=== PATIENT | male | born 1965 | race American Indian/Alaskan Native ===

== ENCOUNTER 2016-06-20 20:15 | Emergency (ER) | payer OTHER ==
[2016-06-21 01:35] VITALS: BP 147/100
--- NOTE | 2016-06-21 01:35 | Emergency Department Report ---
HPI - General Chief Complaint: Extremity Injury, Upper Time Seen by Provider: 06/21/16 01:20 - HPI HPI: 50-year-old male presents to the ED complaining of right hand pain 2 weeks. Patient states he fell about 2 weeks ago and so sore. Patient states since then he is increased pain in that right hand. Patient states he is able to make a fist with his hand. Patient describes been as throbbing intermittent and 4 out of 10 in nature. Patient denies any other medical historyonly that he takes HIV medications. Patient denies fever assess chills/loss of sensation on hand, ED Past Medical Hx - Past Medical History Hx Hypertension: Yes Hx HIV: Yes (AIDS) Additional medical history: HEART MURMUR - Surgical History Additional Surgical History: HAND,ANKLE surgery - Social History Smoking Status: Current Every Day Smoker Substance Use Type: Alcohol - Medications Home Medications: Home Medications Medication Instructions Recorded Confirmed Last Taken Type Abacavir/Dolutegravir/Lamivudi 1 each PO DAILY #30 tablet 02/21/16 Unknown Rx [Triumeq Tablet] Dicyclomine [Bentyl] 10 mg PO QID PRN #20 capsule 02/21/16 Unknown Rx Hydrocortisone [Anucort-HC SUPPOS] 25 mg RC BID #14 supp.rect 02/21/16 Unknown Rx Ondansetron [Zofran Odt] 4 mg PO QID PRN #20 tab.rapdis 02/21/16 Unknown Rx Cyclobenzaprine [Flexeril] 10 mg PO QHS PRN #16 tablet 06/21/16 Unknown Rx Ibuprofen [Motrin] 800 mg PO Q8HR PRN #30 tablet 06/21/16 Unknown Rx ED Review of Systems ROS: Stated complaint: RIGHT ARM PAIN Other details as noted in HPI Constitutional: denies: chills, fever Eyes: denies: eye pain, eye discharge, vision change ENT: denies: ear pain, throat pain Respiratory: denies: cough, shortness of breath, wheezing Cardiovascular: denies: chest pain, palpitations Endocrine: no symptoms reported Gastrointestinal: denies: abdominal pain, nausea, diarrhea Genitourinary: denies: urgency, dysuria Musculoskeletal: denies: back pain, joint swelling, arthralgia Skin: denies: rash, lesions Neurological: denies: headache, weakness, paresthesias Psychiatric: denies: anxiety, depression Hematological/Lymphatic: denies: easy bleeding, easy bruising Physical Exam - Physical Exam Vital Signs: Vital Signs 06/20/16 06/20/16 06/20/16 21:28 21:37 22:56 Temperature 98.8 F 98.8 F 98.6 F Pulse Rate 88 88 88 Respiratory 18 18 Rate Blood Pressure 163/101 Blood Pressure 153/98 [Left] Blood Pressure 163/101 [Right] O2 Sat by Pulse 100 100 97 Oximetry Physical Exam: GENERAL: Alert and oriented x3, no apparent distress, Normal Gait, atraumatic. HEAD: Head is normocephalic and a-traumatic. EYES: Extra ocular muscles are intact. Pupils are equal, round, and reactive to light and accommodation. EARS: symetrical, atraumatic, gross auditory nml bilaterally. NOSE: Nose symetrical, Nontender,Nares appeared normal. MOUTH:Mouth is well hydrated and without lesions.. Patent airways. NECK: Supple. Non edematous, No carotid bruits. No lymphadenopathy or thyromegaly. LUNGS: Symetrical with respiration, No wheezing, no rales or crackles, CTAB. HEART: S1, S2 present, regular rate and rhythm without murmur, no rubs, no gallops. ABDOMEN: No organomegaly was noted,Positive bowel sounds, soft, and non- distended. . Nontender to palpation on all Quadrants, NO CVA tenderness. EXTREMITIES/MUSCULOSKELETAL: No cyanosis, clubbing, rash, lesions or edema. Full ROM bilaterally. UE/LE Pulses 2+ bilaterally. LE and UE 5+ strength bilaterally. Tenderness to palpation over the forearm and fifth metacarpal bone. Full range of motion in fingers and hand. No snuffbox tenderness NEUROLOGIC: No focal Deficit, Cranial nerves II through XII are grossly intact. No loss of sensation, PSYCHIATRIC: Mood is congruent with affect, denies suicidal or homicidal ideations. SKIN: Warm and dry, No lesions, No ulceration or induration present. ED Course Vital Signs 06/20/16 06/20/16 06/20/16 21:28 21:37 22:56 Temperature 98.8 F 98.8 F 98.6 F Pulse Rate 88 88 88 Respiratory 18 18 Rate Blood Pressure 163/101 Blood Pressure 153/98 [Left] Blood Pressure 163/101 [Right] O2 Sat by Pulse 100 100 97 Oximetry ED Medical Decision Making - Radiology Data Radiology results: report reviewed, image reviewed FINAL REPORT PROCEDURE: XR HAND 2V RT TECHNIQUE: Right hand radiographs, AP, lateral, and oblique views. CPT 76835 HISTORY: Fall. Lateral hand pain. COMPARISON: No prior studies are available for comparison. FINDINGS: Fracture (s) and/or Dislocation(s): There is hardware transfixing an old healed fracture of the 1st metacarpal bone.. Alignment: Normal . Joint space(s): Normal . Soft tissues: There is mild soft tissue swelling.. Bone mineralization: Normal . Foreign bodies: None . IMPRESSION: There is no acute bony or soft tissue abnormality.. Transcribed By: CO Dictated By: KOFFI KEITH MD Electronically Authenticated By: KOFFI KEITH MD Signed Date/Time: 06/21/16219 - Medical Decision Making 50-year-old male presents with hand pain secondary to fall. ED course: Hand x-ray ordered. X-ray shows-healed metacarpal fracture. An mild tissue swelling. See above Discussed findings with patient. Patient is alert and oriented 3 is in no sensory distress. Vital signs stable Discussed the patient to follow up with primary care physician. Discussed the patient on medication of Motrin and Fosamax relaxant. Discussed applying heat to right hand. Discussed with patient drowsiness effect of muscle relaxant not to drink while taking medication. Family states he understands and will follow instructions and follow-up Critical care attestation.: If time is entered above; I have spent that time in minutes in the direct care of this critically ill patient, excluding procedure time. ED Disposition Clinical Impression: Healed fracture Contusion of hand Qualifiers: Encounter type: initial encounter Laterality: right Qualified Code(s): S60.221A - Contusion of right hand, initial encounter Disposition: DISCHARGED TO HOME OR SELFCARE Is pt being admited?: No Does the pt Need Aspirin: No Condition: Stable Instructions: Hand Sprain (ED), Contusion in Adults (ED), Heat Pack Application (ED) Prescriptions: Cyclobenzaprine [Flexeril] 10 mg PO QHS PRN #16 tablet PRN Reason: Muscle Spasm Ibuprofen [Motrin] 800 mg PO Q8HR PRN #30 tablet PRN Reason: Pain Referrals: PRIMARY CARE, [Primary Care Provider] - 3-5 Days AYDEE DUKE MD [Referring] - 3-5 Days FABRIZIO OSWALD MD [Referring] - 3-5 Days [facility] [Outside] - 3-5 Days [facility] [Outside] - 3-5 Days Forms: Work/School Release Form(ED) Time of Disposition: 02:44
--- NOTE | 2016-06-21 02:24 | XRay Report ---
FINAL REPORT PROCEDURE: XR HAND 2V RT TECHNIQUE: Right hand radiographs, AP, lateral, and oblique views. CPT 25033 HISTORY: Fall. Lateral hand pain. COMPARISON: No prior studies are available for comparison. FINDINGS: Fracture (s) and/or Dislocation(s): There is hardware transfixing an old healed fracture of the 1st metacarpal bone.. Alignment: Normal . Joint space(s): Normal . Soft tissues: There is mild soft tissue swelling.. Bone mineralization: Normal . Foreign bodies: None . IMPRESSION: There is no acute bony or soft tissue abnormality..
== END 2016-06-21 03:28 | disposition home or self-care (01) ==
LOC: ED 20:15
DX: S60.221A Contusion of right hand, initial encounter (principal); I10 Essential (primary) hypertension; F17.200 Nicotine dependence, unspecified, uncomplicated; W19.XXXA Unspecified fall, initial encounter; Y93.89 Activity, other specified; Y99.9 Unspecified external cause status; Y92.89 Other specified places as the place of occurrence of the external cause

== ENCOUNTER 2016-11-16 13:08 | Inpatient (IN) | payer OTHER ==
[2016-11-16 13:55] LABS: Anion Gap 23 mmol/L; Blood Urea Nitrogen 12 mg/dL (9-20); Carbon Dioxide 19 mmol/L (22-30); Chloride 104.8 mmol/L (98-107); Glucose 103 mg/dL (75-100); Potassium 3.7 mmol/L (3.6-5.0); Sodium 143 mmol/L (137-145)
--- NOTE | 2016-11-16 14:07 | XRay Report ---
FINAL REPORT EXAM: XR CHEST 1V AP HISTORY: chest pain with congestion TECHNIQUE: Single frontal view of the chest PRIORS: None FINDINGS: Lungs are clear. Heart size is normal. Normal pulmonary vasculature. No effusion or pneumothorax. IMPRESSION: 1. No acute finding.
--- NOTE | 2016-11-16 14:12 | Emergency Department Report ---
ED Chest Pain HPI - General Chief Complaint: Chest Pain Stated Complaint: CHEST PAIN/BRYSON Time Seen by Provider: 11/16/16 13:53 Source: patient, EMS Mode of arrival: Stretcher Limitations: No Limitations - History of Present Illness Initial Comments: 51-year-old male here with complaint of mild chest pain and shortness of breath. Patient states that he has been feeling fatigue and worsening shortness of breath of a course last 2 days today he developed some mild chest discomfort and felt increasingly short of breath. He denies any fevers or chills no obvious cough. He has a history of HIV and he says his viral levels are undetectable. He's been under significant stress lately as he recently lost his partner of 21 years. States he is not eating very well. MD Complaint: chest pain Pain Location: substernal Pain Radiation: none Severity scale (0 -10): 7 Quality: tightness Consistency: now resolved Improves With: nitroglycerin re: dyspnea. denies: nausea, vomting, diaphoresis - Related Data Previous Rx's Medication Instructions Recorded Last Taken Type Abacavir/Dolutegravir/Lamivudi 1 each PO DAILY #30 tablet 02/21/16 Unknown Rx [Triumeq Tablet] Dicyclomine [Bentyl] 10 mg PO QID PRN #20 capsule 02/21/16 Unknown Rx Hydrocortisone [Anucort-HC SUPPOS] 25 mg RC BID #14 supp.rect 02/21/16 Unknown Rx Ondansetron [Zofran Odt] 4 mg PO QID PRN #20 tab.rapdis 02/21/16 Unknown Rx Cyclobenzaprine [Flexeril] 10 mg PO QHS PRN #16 tablet 06/21/16 Unknown Rx Ibuprofen [Motrin] 800 mg PO Q8HR PRN #30 tablet 06/21/16 Unknown Rx Allergies Allergy/AdvReac Type Severity Reaction Status Date / Time No Known Allergies Allergy Verified 08/10/14 04:14 Heart Score - HEART Score History: Moderately suspicious EKG: Non-specific Age: 45-65 Risk factors: 1-2 risk factors Troponin: < normal limit HEART Score: 4 - Critical Actions Critical Actions: 0-3 pts:0.9-1.7%risk of adverse cardiac event.Candidate for discharge ED Review of Systems ROS: Stated complaint: CHEST PAIN/BRYSON Other details as noted in HPI Comment: All other systems reviewed and negative Constitutional: malaise, weakness Eyes: denies: eye pain, eye discharge, vision change ENT: denies: ear pain, throat pain Respiratory: shortness of breath, SOB with exertion. denies: cough, wheezing Cardiovascular: chest pain, dyspnea on exertion. denies: palpitations Endocrine: no symptoms reported Gastrointestinal: other (anorexia). denies: abdominal pain, nausea, diarrhea Genitourinary: denies: urgency, dysuria Musculoskeletal: denies: back pain, joint swelling, arthralgia Skin: denies: rash, lesions Neurological: denies: headache, weakness, paresthesias Psychiatric: denies: anxiety, depression Hematological/Lymphatic: denies: easy bleeding, easy bruising ED Past Medical Hx - Past Medical History Previous Medical History?: Yes Hx Hypertension: Yes Hx HIV: Yes (AIDS) Additional medical history: HEART MURMUR - Surgical History Additional Surgical History: HAND,ANKLE surgery - Family History Family history: no significant - Social History Smoking Status: Current Every Day Smoker Substance Use Type: Alcohol - Medications Home Medications: Home Medications Medication Instructions Recorded Confirmed Last Taken Type Abacavir/Dolutegravir/Lamivudi 1 each PO DAILY #30 tablet 02/21/16 Unknown Rx [Triumeq Tablet] Dicyclomine [Bentyl] 10 mg PO QID PRN #20 capsule 02/21/16 Unknown Rx Hydrocortisone [Anucort-HC SUPPOS] 25 mg RC BID #14 supp.rect 02/21/16 Unknown Rx Ondansetron [Zofran Odt] 4 mg PO QID PRN #20 tab.rapdis 02/21/16 Unknown Rx Cyclobenzaprine [Flexeril] 10 mg PO QHS PRN #16 tablet 06/21/16 Unknown Rx Ibuprofen [Motrin] 800 mg PO Q8HR PRN #30 tablet 06/21/16 Unknown Rx ED Physical Exam - General Limitations: No Limitations General appearance: alert, in no apparent distress - Head Head exam: Present: atraumatic, normocephalic - Eye Eye exam: Present: normal appearance. Absent: scleral icterus, conjunctival injection - ENT ENT exam: Present: mucous membranes moist - Neck Neck exam: Present: normal inspection - Respiratory Respiratory exam: Present: normal lung sounds bilaterally. Absent: respiratory distress - Cardiovascular Cardiovascular Exam: Present: regular rate, normal rhythm. Absent: systolic murmur, diastolic murmur, rubs, gallop - GI/Abdominal GI/Abdominal exam: Present: soft, normal bowel sounds. Absent: distended, tenderness, guarding - Rectal Rectal exam: Present: deferred - Extremities Exam Extremities exam: Present: normal inspection - Back Exam Back exam: Present: normal inspection - Neurological Exam Neurological exam: Present: alert, oriented X3 - Psychiatric Psychiatric exam: Present: normal affect, normal mood - Skin Skin exam: Present: warm, dry, intact, normal color, rash (diffuse) ED Course Vital Signs 11/16/16 11/16/16 11/16/16 13:16 13:19 13:26 Temperature 98.3 F Pulse Rate 111 H 77 Respiratory 30 H 21 Rate Blood Pressure 124/73 O2 Sat by Pulse 99 100 Oximetry 11/16/16 11/16/16 13:30 13:50 Temperature Pulse Rate 81 Respiratory 11 L 18 Rate Blood Pressure 125/82 O2 Sat by Pulse 97 100 Oximetry ED Medical Decision Making - Lab Data Result diagrams: 11/16/16 13:32 11/16/16 13:32 - EKG Data -: EKG Interpreted by Nv - EKG Data 11/16/16 14:16 Sinus rate of 77 normal axis normal intervals he has T-wave inversions in I, II , aVL V5 and V6 This is not significantly changed when compared to his EKG from June 2016 in late 2016 - Medical Decision Making 51-year-old male with a history of HIV undetectable viral load here with complaint of 2 days of worsening shortness of breath and some chest tightness. His EKG is unchanged from his priors however he's not had a cardiac workup according to the patient. His heart score places him in moderate risk and he will likely be admitted for further cardiac evaluation. Critical care attestation.: If time is entered above; I have spent that time in minutes in the direct care of this critically ill patient, excluding procedure time. ED Disposition Clinical Impression: Chest pain Disposition: OP ADMIT IP TO THIS HOSP Is pt being admited?: Yes Condition: Stable Instructions: Chest Pain (ED)
[2016-11-16 14:18] LABS: Basophils % (Auto) 1.1 % (0.0-1.8); Eosinophils % (Auto) 1.5 % (0.0-4.3); Hematocrit 44.2 % (35.5-45.6); Hemoglobin 14.7 gm/dl (11.8-15.2); Mean Corpuscular HGB Conc 33 % (32-34); Mean Corpuscular Hemoglobin 33 pg (28-32); Mean Corpuscular Volume 98 fl (84-94); White Blood Count 4.8 K/mm3 (4.5-11.0)
[2016-11-16 14:28] LABS: Platelet Count 50 K/mm3 (140-440)
[2016-11-16] MEDS ORDERED: ZOFRAN ODT PO PRN (17:04)
[2016-11-16] MEDS ORDERED: FLEXERIL PO PRN (17:04)
[2016-11-16] MEDS ORDERED: BENTYL PO PRN (17:04)
--- NOTE | 2016-11-16 17:04 | History and Physical Report ---
History of Present Illness Date of examination: 11/16/16 Date of admission: 11/16/16 Chief complaint: Chest pain off and on for 2 days History of present illness: History of Present Illness 51-year-old male here with complaint of mild chest pain and shortness of breath. Patient states that he has been feeling fatigue and worsening shortness of breath of a course last 2 days today he developed some mild chest discomfort and felt increasingly short of breath. He denies any fevers or chills no obvious cough. He has a history of HIV and he says his viral levels are undetectable. He's been under significant stress lately as he recently lost his partner of 21 years. States he is not eating very well. Past Medical History Previous Medical History?: Yes Hx Hypertension: Yes Hx HIV: Yes (AIDS) Additional medical history: HEART MURMUR - Surgical History Additional Surgical History: HAND,ANKLE surgery - Family History Family history: no significant - Social History Smoking Status: Current Every Day Smoker Substance Use Type: Alcohol - Medications Home Medications: Home Medications Medication Instructions Recorded Confirmed Last Taken Type Abacavir/Dolutegravir/Lamivudi 1 each PO DAILY #30 tablet 02/21/16 Unknown Rx [Triumeq Tablet] Dicyclomine [Bentyl] 10 mg PO QID PRN #20 capsule 02/21/16 Unknown Rx Hydrocortisone [Anucort-HC SUPPOS] 25 mg RC BID #14 supp.rect 02/21/16 Unknown Rx Ondansetron [Zofran Odt] 4 mg PO QID PRN #20 tab.rapdis 02/21/16 Unknown Rx Cyclobenzaprine [Flexeril] 10 mg PO QHS PRN #16 tablet 06/21/16 Unknown Rx Ibuprofen [Motrin] 800 mg PO Q8HR PRN #30 tablet 06/21/16 Unknown Rx Review of Systems Stated complaint: CHEST PAIN/BRYSON Other details as noted in HPI Comment: All other systems reviewed and negative Constitutional: malaise, weakness Eyes: denies: eye pain, eye discharge, vision change ENT: denies: ear pain, throat pain Respiratory: shortness of breath, SOB with exertion. denies: cough, wheezing Cardiovascular: chest pain, dyspnea on exertion. denies: palpitations Endocrine: no symptoms reported Gastrointestinal: other (anorexia). denies: abdominal pain, nausea, diarrhea Genitourinary: denies: urgency, dysuria Musculoskeletal: denies: back pain, joint swelling, arthralgia Skin: denies: rash, lesions Neurological: denies: headache, weakness, paresthesias Psychiatric: denies: anxiety, depression Hematological/Lymphatic: denies: easy bleeding Medications and Allergies Allergies Allergy/AdvReac Type Severity Reaction Status Date / Time No Known Allergies Allergy Verified 08/10/14 04:14 Home Medications Medication Instructions Recorded Confirmed Last Taken Type Abacavir/Dolutegravir/Lamivudi 1 each PO DAILY #30 tablet 02/21/16 11/16/16 Rx [Triumeq Tablet] Exam - Constitutional Vitals: Temp Pulse Resp BP Pulse Ox 98.3 F 86 16 123/77 97 11/16/16 13:19 11/16/16 15:00 11/16/16 15:00 11/16/16 15:00 11/16/16 15:00 General appearance: Present: no acute distress, well-nourished - EENT Eyes: Present: PERRL ENT: hearing intact, clear oral mucosa - Neck Neck: Present: supple, normal ROM - Respiratory Respiratory effort: normal Respiratory: bilateral: CTA - Cardiovascular Heart rate: 80 Rhythm: regular Heart Sounds: Present: S1 & S2. Absent: rub, click - Extremities Extremities: pulses symmetrical, No edema Peripheral Pulses: within normal limits - Abdominal General gastrointestinal: Present: soft, non-tender, non-distended, normal bowel sounds Male genitourinary: Present: normal - Integumentary Integumentary: Present: clear, warm, dry - Musculoskeletal Musculoskeletal: gait normal, strength equal bilaterally - Psychiatric Psychiatric: appropriate mood/affect, intact judgment & insight - Neurologic Neurologic: CNII-XII intact, moves all extremities Results - Labs CBC & Chem 7: 11/17/16 06:55 11/17/16 06:55 Labs: Laboratory Last Values WBC 4.8 K/mm3 (4.5-11.0) 11/16/16 13:32 RBC 4.50 M/mm3 (3.65-5.03) 11/16/16 13:32 Hgb 14.7 gm/dl (11.8-15.2) 11/16/16 13:32 Hct 44.2 % (35.5-45.6) 11/16/16 13:32 MCV 98 fl (84-94) H 11/16/16 13:32 MCH 33 pg (28-32) H 11/16/16 13:32 MCHC 33 % (32-34) 11/16/16 13:32 RDW 16.0 % (13.2-15.2) H 11/16/16 13:32 Plt Count 50 K/mm3 (140-440) L 11/16/16 13:32 Lymph % (Auto) 39.9 % (13.4-35.0) H 11/16/16 13:32 [place] % (Auto) 7.7 % (0.0-7.3) H 11/16/16 13:32 Eos % (Auto) 1.5 % (0.0-4.3) 11/16/16 13:32 Baso % (Auto) 1.1 % (0.0-1.8) 11/16/16 13:32 Lymph # 1.9 K/mm3 (1.2-5.4) 11/16/16 13:32 [place] # 0.4 K/mm3 (0.0-0.8) 11/16/16 13:32 Eos # 0.1 K/mm3 (0.0-0.4) 11/16/16 13:32 Baso # 0.1 K/mm3 (0.0-0.1) 11/16/16 13:32 Seg Neutrophils % 49.8 % (40.0-70.0) 11/16/16 13:32 Seg Neutrophils # 2.4 K/mm3 (1.8-7.7) 11/16/16 13:32 Sodium 143 mmol/L (137-145) 11/16/16 13:32 Potassium 3.7 mmol/L (3.6-5.0) 11/16/16 13:32 Chloride 104.8 mmol/L (98-107) 11/16/16 13:32 Carbon Dioxide 19 mmol/L (22-30) L 11/16/16 13:32 Anion Gap 23 mmol/L 11/16/16 13:32 BUN 12 mg/dL (9-20) 11/16/16 13:32 Creatinine 1.0 mg/dL (0.8-1.5) 11/16/16 13:32 Estimated GFR > 60 ml/min 11/16/16 13:32 BUN/Creatinine Ratio 12.00 % 11/16/16 13:32 Glucose 103 mg/dL (75-100) H 11/16/16 13:32 Calcium 9.0 mg/dL (8.4-10.2) 11/16/16 13:32 Troponin T < 0.010 ng/mL (0.00-0.029) 11/16/16 16:21 - Imaging and Cardiology Chest x-ray: report reviewed Assessment and Plan Advance Directives: Yes (Full code) Plan of care discussed with patient/family: Yes - Patient Problems (1) Chest pain Current Visit: Yes Status: Acute Qualifiers: Chest pain type: unspecified Ischemic chest pain type: I Qualified Code(s ): R07.9 - Chest pain, unspecified Plan to address problem: R/o SD protocol Serial cardiac enzymes and Lexiscan (2) HIV (human immunodeficiency virus infection) Current Visit: Yes Status: Chronic Plan to address problem: Cont anti retrovirals (3) DVT prophylaxis Current Visit: Yes Status: Acute (4) DVT prophylaxis Current Visit: Yes Status: Acute (5) DVT prophylaxis Current Visit: Yes Status: Acute Plan to address problem: on Lovenox 40 mg sq qd
[2016-11-16] MEDS ORDERED: TYLENOL PO PRN (17:05)
[2016-11-16] MEDS ORDERED: MILK OF MAGNESIA PO PRN (17:05)
[2016-11-16] MEDS ORDERED: DILAUDID IV PRN (17:05)
[2016-11-16] MEDS ORDERED: ZOFRAN IV PRN (17:05)
[2016-11-16] MEDS ORDERED: PERCOCET 5/325 PO PRN (17:05)
[2016-11-16] MEDS ORDERED: DULCOLAX PR PRN (17:05)
[2016-11-16 17:52] LABS: Creatine Kinase MB 2.3 ng/mL (0.0-4.0)
[2016-11-16 17:53] LABS: Creatine Kinase 145 units/L (55-170)
[2016-11-16] MEDS ORDERED: D5NS 1,000 ML IV SCH (18:00)
[2016-11-16] MEDS: HABITROL TD SCH (20:41)
[2016-11-17 00:17] LABS: Creatine Kinase MB 2.1 ng/mL (0.0-4.0)
[2016-11-17 00:18] LABS: Creatine Kinase 140 units/L (55-170)
[2016-11-17 07:49] LABS: Eosinophils % (Auto) 0.8 % (0.0-4.3)
[2016-11-17 08:02] LABS: Alanine Aminotransferase 127 units/L (7-56); Albumin 3.8 g/dL (3.9-5); Albumin/Globulin Ratio 1.1 %; Alkaline Phosphatase 141 units/L (35-129); Anion Gap 21 mmol/L; BUN/Creatinine Ratio 11.11; Blood Urea Nitrogen 10 mg/dL (9-20); Calcium 8.7 mg/dL (8.4-10.2); Carbon Dioxide 22 mmol/L (22-30); Chloride 106.3 mmol/L (98-107); Glucose 74 mg/dL (75-100); Potassium 4.3 mmol/L (3.6-5.0); Sodium 145 mmol/L (137-145); Total Protein 7.3 g/dL (6.3-8.2)
[2016-11-17 08:08] LABS: Hematocrit 38.1 % (35.5-45.6); Hemoglobin 12.2 gm/dl (11.8-15.2); Mean Corpuscular HGB Conc 32 % (32-34); Mean Corpuscular Hemoglobin 32 pg (28-32); Mean Corpuscular Volume 100 fl (84-94); Red Blood Count 3.79 M/mm3 (3.65-5.03); White Blood Count 7.6 K/mm3 (4.5-11.0)
[2016-11-17 08:09] LABS: Basophils % (Auto) 0.7 % (0.0-1.8); Mean Platelet Volume 11.4 fl (6-12); Red Cell Distribution Width 16.1 % (13.2-15.2)
[2016-11-17 08:11] LABS: Platelet Count 48 K/mm3 (140-440)
--- NOTE | 2016-11-17 08:27 | Progress Note ---
Hospitalist Physical - Constitutional Vitals: Temp Pulse Resp BP Pulse Ox 98.2 F 62 18 158/92 95 11/17/16 04:00 11/17/16 04:00 11/17/16 04:00 11/17/16 04:00 11/17/16 07:51 General appearance: Present: no acute distress, well-nourished Results - Labs CBC & Chem 7: 11/17/16 06:55 11/17/16 06:55 Labs: Laboratory Last Values WBC 7.6 K/mm3 (4.5-11.0) 11/17/16 06:55 RBC 3.79 M/mm3 (3.65-5.03) 11/17/16 06:55 Hgb 12.2 gm/dl (11.8-15.2) 11/17/16 06:55 Hct 38.1 % (35.5-45.6) D 11/17/16 06:55 MCV 100 fl (84-94) H 11/17/16 06:55 MCH 32 pg (28-32) 11/17/16 06:55 MCHC 32 % (32-34) 11/17/16 06:55 RDW 16.1 % (13.2-15.2) H 11/17/16 06:55 Plt Count 48 K/mm3 (140-440) L 11/17/16 06:55 Lymph % (Auto) 17.6 % (13.4-35.0) 11/17/16 06:55 [place] % (Auto) 6.2 % (0.0-7.3) 11/17/16 06:55 Eos % (Auto) 0.8 % (0.0-4.3) 11/17/16 06:55 Baso % (Auto) 0.7 % (0.0-1.8) 11/17/16 06:55 Lymph # 1.2 K/mm3 (1.2-5.4) 11/17/16 06:55 [place] # 0.5 K/mm3 (0.0-0.8) 11/17/16 06:55 Eos # 0.1 K/mm3 (0.0-0.4) 11/17/16 06:55 Baso # 0.1 K/mm3 (0.0-0.1) 11/17/16 06:55 Seg Neutrophils % 74.3 % (40.0-70.0) H 11/17/16 06:55 Seg Neutrophils # 5.7 K/mm3 (1.8-7.7) 11/17/16 06:55 Sodium 145 mmol/L (137-145) 11/17/16 06:55 Potassium 4.3 mmol/L (3.6-5.0) 11/17/16 06:55 Chloride 106.3 mmol/L (98-107) 11/17/16 06:55 Carbon Dioxide 22 mmol/L (22-30) 11/17/16 06:55 Anion Gap 21 mmol/L 11/17/16 06:55 BUN 10 mg/dL (9-20) 11/17/16 06:55 Creatinine 0.9 mg/dL (0.8-1.5) 11/17/16 06:55 Estimated GFR > 60 ml/min 11/17/16 06:55 BUN/Creatinine Ratio 11.11 % 11/17/16 06:55 Glucose 74 mg/dL (75-100) L 11/17/16 06:55 Hemoglobin A1c 5.1 % (4-6) 11/16/16 17:26 Calcium 8.7 mg/dL (8.4-10.2) 11/17/16 06:55 Total Bilirubin 0.60 mg/dL (0.1-1.2) 11/17/16 06:55 AST 191 units/L (5-40) H 11/17/16 06:55 ALT 127 units/L (7-56) H 11/17/16 06:55 Alkaline Phosphatase 141 units/L (35-129) H 11/17/16 06:55 Total Creatine Kinase 140 units/L (55-170) 11/16/16 23:20 CK-MB (CK-2) 2.1 ng/mL (0.0-4.0) 11/16/16 23:20 CK-MB (CK-2) Rel Index 1.5 (0-4) 11/16/16 23:20 Troponin T < 0.010 ng/mL (0.00-0.029) 11/16/16 23:20 Total Protein 7.3 g/dL (6.3-8.2) 11/17/16 06:55 Albumin 3.8 g/dL (3.9-5) L 11/17/16 06:55 Albumin/Globulin Ratio 1.1 % 11/17/16 06:55
[2016-11-17] MEDS ORDERED: LEXISCAN IV ONE (09:04)
[2016-11-17] MEDS ORDERED: LOVENOX SUB-Q SCH (10:00)
[2016-11-17] MEDS ORDERED: NON-FORMULARY (Abacavir/Dolutegravir/Lamivudi [Triumeq Tablet] 1 EACH) PO SCH (10:00)
[2016-11-17] MEDS: HABITROL TD SCH (11:12)
[2016-11-17] MEDS ORDERED: ATIVAN IV PRN ×2 (11:16)
[2016-11-17 11:46] VITALS: BP 169/93
--- NOTE | 2016-11-17 13:33 | Admit Criteria Form ---
<DEEPAK SHIRLEY - Last Filed: 11/17/16 13:32> Admission Criteria Documentation: CARDIOLOGY GRG Clinical Indications for Admission to Inpatient Care (Scammon/check or initial the applicable condition/criteria) Hospital admission is needed for appropriate care of the patient because of ANY ONE of the following: [ ] I. Hemodynamic instability as indicated by ALL of the following (1)(2)(3) (4)(5)(6)(7)(8)(9)(10) [ ]a) Vital sign abnormality not readily corrected by appropriate treatment with 12-24 hours for ANY ONE: [ ]i) Hypotension that persists despite appropriate treatment (eg, volume repletion) [ ]ii) Tachycardiathat persists despite appropriate tx ( e.g., analgesia, fluids, sedation as indicated [ ]iii) Orthostatic vital sign changes that persists despite appropriate treatment (eg, volume repletion) [ ]b) Vital sign abnormailty that is severe indicated by ANY ONE of the following: [ ]i) Inadequate perfusion indicated by ANY ONE of the following: [ ] 1) Lactic acidosis (> 2 mmol/L) [ ] 2) New abnormal capillary refill (> 3 seconds) [ ] 3) Reduced urine output [ ] 4) New altered mental status [ ] 5) Myocardial Ischemia [ ] 6) Other metabolic acidosis (arterial pH <7.35 ) not otherwise explained. [ ]ii) Mean arterial pressure[A] less than 60 mm Hg [ ]iii) Mean arterial pressure[A] less than 70 mm Hg after 30 minutes of appropriate treatment (eg, fluid resuscitation) [ ]iv) Sustained heart rate greater than 120 beats per minute in adult or child 6 years or older[B] [ ]v) IV inotropic or vasopressor medication required to maintain adequate blood pressure or perfusion [ ] II. Severe heart failure as indicated by ANY ONE of the following(17)(18) [ ]a) Respiratory distress [ ]b) Hypotension [ ]c) Debilitating anasarca refractory to therapy (eg, tissue breakdown with infection)[C](19) [ ]d) Cardiac arrhythmias of immediate concern [ ]e) Myocardial ischemia [ ] III. Cardiac arrhythmias or findings of immediate concern indicated by ANY ONE of the following (21)(22): [ ] a) Heart rhythms that are inherently dangerous or unstable indicated by ANY ONE of the following (23)(24)(25): [ ] i) Resuscitated ventricular fibrillation or cardiac arrest [ ] ii) Ventricular escape rhythm [ ] iii) Sustained ventricular tachycardia (30 seconds or more of ventricular rhythm at greater than 100 beats per minute) [ ] iv) Nonsustained ventricular tachycardia and ANY ONE of the following: [ ] 1) Suspected cardiac ischemia as cause or consequence of ventricular tachycardia [ ] 2) Acute myocarditis [ ] b) Unstable cardiac conduction defects indicated by ANY ONE of the following(25)(26)(27) [ ] i) Type II second-degree atrioventricular block [ ]ii) Third-degree atrioventricular block [ ]iii) New-onset left bundle branch block with suspected myocardial ischemia [ ]c) Any heart rhythm and ANY ONE of the following (23)(24)(28)(29) (30) [ ] i) Continuous long-term ECG monitoring needed (e.g., initiation of drug requiring monitoring for more than 24 hours) [ ] ii) Patient has automatic implanted cardioverter defibrillator that is repeatedly firing, malfunctioning, or in need of immediate adjustment of settings beyond the scope of ambulatory or observation care [ ]d) Heart rhythms of concern due to ANY ONE of the following: [ ] i) Hypotension [ ] ii) Respiratory distress [ ] iii) Association with other significant symptoms (e.g., bradycardia with syncope or ongoing dizziness, supraventricular tachycardia with chest pain (28)(29)(31) [ ] IV. Monitoring for cardiac contusion beyond the scope of observation care needed [A](32)(33)(34) [ ] V. Surgical or device complication (e.g., valve replacement complication , ICD disfunction or pacemaker dysfunction) (49)(50)(51)(52)(53)(54) [ ] . Inpatient palliative care needed. [F](51)(52) Also use Inpatient Palliative Care Criteria [ ] VII. Nonbacterial thrombotic (marantic) endocarditis(43)(44)(55)(56)(57) [X] VIII. Cardiology condition, symptom, or finding for which emergency and observation care has failed or are not considered appropriate. [ ] IX. Acute valvular disease requiring inpatient as indicated by ANY ONE of the following (40)(41) [ ]a) Acute valvular regurgitation (42) [ ]b) Noninfectious valvulitis (43)(44) [ ]c) Obstructive valve thrombosis (45)(46) [ ]d) Paravalvular leak(47)(48) [ ]e) Other significant valvular disorder remaining after emergency or observation level of care (as appropriate) [ ]X. Pericardial disease requiring inpatient treatment as indicated by ANY ONE of the following (35)(36)(37)(38) [ ]a) Suspected tamponade [ ]b) Hemopericardium [ ]c) Other significant pericardial disorder remaining after emergency or observation level of care (as appropriate)(39) [ ] XI. Cardiac ischemia beyond scope of emergency and observation care. [ ] XII. Cyanotic heart disease requiring inpatient care as indicated by 1 or more of the following(58)(59)(60): [ ]a) Acute onset of hypoxemia [ ]b) Exacerbation [ ] XIII. Hypertension requiring inpatient treatment as indicated by ANYONE of the following(11)(12)(13)(14): [ ]a) Severe hypertension (SBP greater than 180 mm Hg or DBP greater than 110 mm Hg, or greater than the 95th percentile for age, gender, and height in pediatric patients) that cannot be controlled (eg, to SBP less than 160 mm Hg and DBP less than 100 mm Hg) by emergency department or observation care treatment(15) [ ]b) Acute end organ damage secondary to hypertension (SBP greater than 140 mm Hg or DBP greater than 90 mm Hg) as indicated by ANYONE of the following: [ ] i) Hypertensive encephalopathy (eg, Altered mental status)(16) [ ] ii) Cerebral infarction [ ] iii) Intracranial hemorrhage [ ] iv) Myocardial ischemia or infarction [ ] v) Heart failure (eg, pulmonary edema) [ ] vi) Aortic dissection [ ] vii) Increased creatinine (new) with reduction of more than 50% in estimated glomerular filtration rate from baseline [ ] viii) Papilledema [ ] ix) Retinal hemorrhage [ ] x) Microangiopathic hemolytic anemia [ ] xi) Seizure [ ] xii) Other significant finding secondary to hypertension [ ] XIV. Complications of transplanted heart indicated by ANY ONE of the following(61): [ ]a) Acute graft rejection requiring inpatient management (eg, intravenous imunosuppression)(62)(63) [ ]b) Acute graft heart failure indicated by ANY ONE of the following(64): [ ] i) Hemodynamic instability [ ] ii) Cardiac arrhythmias of immediate concern [ ] iii) Pulmonary edema that is very severe (eg, mechanical ventilation needed, imminent or likely, need for 100% oxygen to keep oxygen saturation above 90%) [ ] iv) Pulmonary edema that is persistent as indicated by ALL of the following: [ ] 1) New need for oxygen therapy to keep oxygen saturation above 90 % (or increased FiO2 need from baseline) [ ] 2) Has not improved sufficiently with emergency department or observation care IV diuretics or other heart failure treatments[E]. [ ] iv) Altered mental status that is severe or persistent [ ] iv) Increased creatinine (new on laboratory test) with reduction of more than 50% in estimated glomerular filtration rate from baseline [ ] iv) Progressively (ongoing) rising creatinine (known from past laboratory test) with reduction of more than 25% in estimated glomerular filtration rate from baseline [ ] iv) Acute renal failure [ ] iv) Acute peripheral ischemia (eg, examination shows pulseless, cool, mottled, or cyanotic extremity) [ ] iv) Pulmonary artery catheter monitoring needed [ ] iv) Other sign or symptom of heart failure requiring inpatient treatment (ie, too severe or not responsive to outpatient and observation care treatment) [ ]c) Infection requiring inpatient management (eg, Hemodynamic instability, need for intravenous antimicrobial treatment)(66)(67)(68)(69)(70) [ ]d) Cardiac allograft vasculopathy requiring inpatient management (eg evidence of cardiacischemia)(71) [ ]e) Other complication of transplanted heart (eg, stroke, severe pulmonary hypertension, severe valvular dysfunction) requiring inpatient management(72) The original [facility] content created by [employer] has been revised. The portions of the content which have been revised are identified through the use of italic text or in bold, and [facility] has neither reviewed nor approved the modified material. All other unmodified content is copyright [facility]. Please see references footnoted in the original [facility] edition 2017 <RASHEL PAIZ - Last Filed: 11/21/16 15:25> Admission Criteria Documentation: I am signing this note administratively. This form was not filled out by me and has no bearing on the patient's medical condition or admission status. Admission Criteria Met: No
--- NOTE | 2016-11-17 16:42 | Discharge Summary ---
Providers - Providers Date of Admission: 11/16/16 17:05 Date of discharge: 11/17/16 Attending physician: GLENROY ROWLEY Primary care physician: [facility]ANCIAL REP Hospitalization Reason for admission: chest pain Condition: Stable Pertinent studies: CXR : normal study Stress test: Negative for reversible ischemia,LVEF 62% Hospital course: 51 yr old male patient was admitted through ER with left sided chest pain. admitted to hospital, symptomatically managed ,had stress test which was negative,Echo normal Patient had transaminitis sec to alcohol liver disease. Counselling done advised to quit alcohol intake,advised to seek alcohol rehabilitation counselling done,advised smoking cessation and nicotine patch. Patients symptoms resolved Closely monitored for alcohol withdrawal symptoms with [facility] protocols. Today he is comfortable,no complaints,Hemodynamically and clinically stable for discharge Discharge Diagnosis: Atypical chest pain sec to GERD Alcoholic Liver disease h/o HIV AIDS Alcohol use Tobacco use Disposition: DC-01 TO HOME OR SELFCARE Time spent for discharge: 31 min Core Measure Documentation - Palliative Care Palliative Care/ Comfort Measures: Not Applicable - Core Measures Any of the following diagnoses?: none Exam - Constitutional Vitals: Temp Pulse Resp BP Pulse Ox 98.2 F 86 18 169/93 95 11/17/16 04:00 11/17/16 09:51 11/17/16 04:00 11/17/16 09:51 11/17/16 07:51 General appearance: Present: no acute distress, well-nourished - EENT Eyes: Present: PERRL, EOM intact - Neck Neck: Present: supple, normal ROM - Respiratory Respiratory effort: normal Respiratory: bilateral: diminished, negative: rales, rhonchi, wheezing - Cardiovascular Rhythm: regular Heart Sounds: Present: S1 & S2 - Extremities Extremities: no ischemia, No edema Peripheral Pulses: within normal limits - Abdominal General gastrointestinal: Present: soft, non-tender, non-distended, normal bowel sounds - Integumentary Integumentary: Present: clear, warm - Musculoskeletal Musculoskeletal: strength equal bilaterally - Psychiatric Psychiatric: appropriate mood/affect, cooperative - Neurologic Neurologic: CNII-XII intact, moves all extremities Plan Activity: advance as tolerated, fall precautions Diet: other (cardiac diet) Special Instructions: smoking cessation, other (advised to quit alcohol) Additional Instructions: Advised to seek alcohol rehab. advised to join and attend [facility] support group. see private GI for further evaluation and management of Alcoholic liver disease. Do not drive or operate heavy machinary when you are under the influence of alcohol Follow up with: PRIMARY CARE, [Primary Care Provider] - 3-5 Days Prescriptions: Famotidine [Pepcid] 10 mg PO BID #30 tablet Folic Acid [Folvite] 1 mg PO QDAY #30 tablet Nicotine [Habitrol] 14 mg TD QDAY #30 patch Thiamine [Vitamin B-1] 100 mg PO QDAY #30 tablet
--- NOTE | 2016-11-17 20:45 | Treadmill Report ---
NUCLEAR STRESS TEST The patient is brought to the Cardiology lab and Lexiscan stress test is performed. The patient tolerated the procedure well. Post-stress images reveal fairly homogeneous distribution of isotope. No significant reversible defects are noted to indicate ischemia. Accompanying gated study shows good systolic function with no wall motion abnormalities. Calculated ejection fraction is noted to be 72%. IMPRESSION: 1. Negative test for significant reversible defects to indicate ischemia. 2. Good systolic function with a calculated ejection fraction of 62% with no wall motion abnormalities. 3. Suggest clinical correlation. JOB# [id number]/[id number]
== END 2016-11-17 19:00 | disposition home or self-care (01) | DRG 391 ==
LOC: ED 13:08 → 4A 17:05
PROVIDERS: ADMIT Internal Medicine; ATTEND Internal Medicine
DX: K21.9 Gastro-esophageal reflux disease without esophagitis (principal); B20 Human immunodeficiency virus [HIV] disease; I10 Essential (primary) hypertension; F17.200 Nicotine dependence, unspecified, uncomplicated; Z72.89 Other problems related to lifestyle; K70.9 Alcoholic liver disease, unspecified; Z71.6 Tobacco abuse counseling; Z71.41 Alcohol abuse counseling and surveillance of alcoholic
CPT/HCPCS: 36415; 71010; 78452; 80048; 80053; 80074; 82550; 82553; 83036; 84484; 85025; 93005; 93010; 93017; 99285; 99406; A9502; J1650; J2060; J2785